=== PATIENT | female | born 1990 | race Caucasian/White ===

== ENCOUNTER 2019-03-13 05:30 | Inpatient (IN) | payer OTHER ==
[2019-03-13] MEDS ORDERED: Methylergonovine 0.2 MG/ML VIAL IM PRN (06:28)
[2019-03-13] MEDS ORDERED: Ibuprofen 800 MG TAB PO PRN (06:28)
[2019-03-13] MEDS ORDERED: Butorphanol Tartrate 1 MG/ML VIAL SLOW IVP PRN (06:28)
[2019-03-13] MEDS ORDERED: Promethazine HCl 25 MG/ML VIAL IM PRN ×2 (06:28→12:51)
[2019-03-13] MEDS ORDERED: Lidocaine 1% (PF) 30 ML VIAL SC PRN (06:28)
[2019-03-13] MEDS ORDERED: NS / Oxytocin 40 units/1000ml 1,000 ML IV PRN (06:28)
[2019-03-13] MEDS ORDERED: HYDROcodone/Acetaminophen 5/325 mg Tablet PO PRN ×3 (06:28→22:44)
[2019-03-13] MEDS ORDERED: Misoprostol 200 MCG TAB PR PRN (06:28)
[2019-03-13] MEDS ORDERED: Acetaminophen 500 MG TAB PO PRN (06:28)
[2019-03-13] MEDS ORDERED: Ondansetron PF 4 MG/2 ML Vial IVP PRN ×3 (06:28→22:44)
[2019-03-13] MEDS ORDERED: NS w/ Oxytocin 10 units 500 ML IV SCH (06:28)
[2019-03-13] MEDS ORDERED: Diphenoxylate HCl/Atropine Tablet PO PRN (06:28)
[2019-03-13] MEDS ORDERED: Carboprost 250 MCG/ML AMP IM PRN (06:28)
[2019-03-13 06:44] VITALS: BMI 34.9
[2019-03-13] MEDS: Lactated Ringer's 1,000 ML IV SCH ×3 (07:03→17:18)
[2019-03-13 07:51] LABS: Hemoglobin 11.4 g/dL (12.0-16.0); Mean Corpuscular HGB CONC 33.8 g/dL (32.0-36.0); Mean Corpuscular Hemoglobin 29.4 pg (27.0-31.0); Mean Corpuscular Volume 86.9 fL (78.0-98.0); Mean Platelet Volume 8.4 fL (7.4-10.4); Platelet Count 185 thou/uL (130-400); RBC Distribution Width 12.9 % (11.5-14.5); Red Blood Cell (RBC) Count 3.88 mill/uL (4.20-5.40); White Blood Cell (WBC) Count 10.8 thou/uL (4.8-10.8)
--- NOTE | 2019-03-13 08:04 | PDOC.LDHP ---
Labor and Delivery H&P Chief complaint: scheduled induction HPI: 28yo at 39w5d by LMP here for elective IOL. No complaints. Good FM. Current gestational age (weeks): 39 Due date: 03/15/19 Dating criteria: last menstrual period Grav: 3 Para: 2 OB History Details: hx of minor dystocia with last delivery of 7lb7oz baby Current complications: none Abnormal US findings: No Current medications: pre- vitamins Previous surgical history: none Allergies/Adverse Reactions: Allergies Allergy/AdvReac Type Severity Reaction Status Date / Time No Known Allergies Allergy Verified 03/13/19 06:30 Social history: none - Physical Exam Vital signs reviewed and normal: yes General: NAD Heart: RRR Lungs: CTAB Abdomen: gravid Extremeties: no edema FHT: category 1 [place] contractions every: 3-4min - OB Labs Blood type: O RH: positive Antibody Screen: negative HIV: negative RPR: negative HEPSAg: negative 1 hour GCT: negative GBS: negative Urine drug screen: negative Rubella: immune - Assessment L&D Assessment: elective induction at term - Plan Plan: admit to L&D, labor augmentation if indicated, informed consent obtained, anesthesia consult for pain management
[2019-03-13 08:29] LABS: HBSAg Index 0.28 S/CO (0-0.99); Hep B Surf Ag Non-Reactive S/CO (NonReactive); Syphilis Antibody Nonreactive (Nonreactive); Syphilis Antibody Index 0.05 S/CO (<1.00 Non-Reactive)
[2019-03-13] MEDS ORDERED: Terbutaline Sulfate 1 MG/ML VIAL ONE (11:11)
[2019-03-13] MEDS ORDERED: Bupivacaine/Epinephrine 0.25% 30 ML VIAL ONE (11:11)
[2019-03-13] MEDS ORDERED: Bupivacaine 0.25% HCL 30 ML VIAL ONE ×2 (11:11→17:14)
[2019-03-13] MEDS ORDERED: Fentanyl 4 mcg/Bup 0.1% Cadd 100 ML ONE ×2 (11:47→18:34)
[2019-03-13] MEDS: Fentanyl 4 mcg/Bupivacaine 0.1% Cassette 100 ML EPIDURAL SCH ×2 (12:48→18:36)
[2019-03-13] MEDS ORDERED: Acetaminophen 325 MG TAB PO PRN (12:51)
[2019-03-13] MEDS ORDERED: Lactated Ringer's 500 ML IV PRN (12:51)
[2019-03-13] MEDS ORDERED: Naloxone HCl 0.4 mg/ml Vial IVP PRN ×2 (12:51)
[2019-03-13] MEDS ORDERED: ePHEDrine/0.9% NaCl/PF SYRINGE 50 mg/10 ml SLOW IVP PRN (12:51)
[2019-03-13] MEDS ORDERED: diphenhydrAMINE 50 MG/ML VIAL IVP PRN (12:51)
[2019-03-13] MEDS ORDERED: Communication Order-Pharmacy FS SCH (13:00)
--- NOTE | 2019-03-13 17:26 | PDOC.LDPN ---
Labor & Delivery Progress Note - Subjective Subjective: painful contractions - Objective Vital signs reviewed and normal: yes General: NAD Uterine fundus: non tender Dilation: 6 Effacement: 90% Station: -1 FHT: category 2, absent or minimal variables (, prolonged decel to 60s for 10min at 1641 that required knee chest, pitocin DC, terbutaline. Since then late decel x 2 and earlies, minimal variability. ) Resuscitative measures: maternal oxygen, maternal IV fluids, maternal position change, other (terbutaline 0.25 sq) Plan: resuscitative measures, other (replace epidural)
[2019-03-13] MEDS ORDERED: Terbutaline Sulfate 1 MG/ML VIAL SC SCH (17:45)
--- NOTE | 2019-03-13 21:06 | PDOC.OPDEL ---
OB Operative/Delivery Note Delivery Dr/Surgeon: Rudolph Assist: n/a Pre-Delivery Diagnosis: elective induction Procedure/Post Delivery Dx: spontaneous vaginal delivery Weeks gestation: 39 Anesthesia: epidural - Findings A Sex: female - 1 min: 8 - 5 min: 9 - Additional Findings/Plan Placenta delivered: spontaneous Repaired Obstetrical Laceration: none Estimated blood loss: 50cc Compilations/Other Findings: NC x 1 reduced at perineum, slight shoulder dystocia resolved with Elyssa and suprapubic. Anterior shoulder was right side. Total time on perineum approx 30sec. Post delivery plan: routine recovery
[2019-03-13 21:07] LABS: Actual Bicarbonate (HCO3v) 21 mEq/L (22-28); Base Excess -4.3 mEq/L (-2.0 to +3.0); pH (Cord, venous) 7.35 (7.32-7.43)
[2019-03-13] MEDS ORDERED: Adacel (T-DAP) 0.5 ML SYRINGE IM ONE (22:44)
[2019-03-13] MEDS ORDERED: Milk Of Magnesia 30 ML UDCUP PO PRN (22:44)
[2019-03-13] MEDS ORDERED: Benzocaine-Menthol 82.5 ML CAN TOP PRN (22:44)
[2019-03-13] MEDS ORDERED: diphenhydrAMINE 25 MG CAP PO PRN (22:44)
[2019-03-13] MEDS ORDERED: NS / Oxytocin 40 units/1000ml 1,000 ML IV SCH (22:44)
[2019-03-13] MEDS ORDERED: Preparation H Ointment 28 GM TUBE PR PRN (22:44)
[2019-03-13] MEDS ORDERED: Lanolin Ointment 7 GM TUBE TOP PRN (22:44)
[2019-03-13] MEDS ORDERED: Bisacodyl 10 MG SUPP PR PRN (22:44)
[2019-03-14] MEDS: Ibuprofen 800 MG TAB PO SCH ×5 (01:34→21:42)
--- NOTE | 2019-03-14 08:07 | PDOC.PP ---
Post Progress Note Post Day #: 1 Subjective: C/O numbness on left LE along anterior quadriceps and ayala. Unable to ambulate due to it. No other concerns. Breast feeding. Minimal lochia and pain. PO intake tolerated: yes Flatus: yes Ambulation: yes Vital Signs (12 hours) Temp Pulse Resp BP Pulse Ox 03/14/19 07:49 97.7 F 68 20 117/69 100 03/14/19 04:28 97.7 F 72 18 111/58 L 03/14/19 01:22 98.2 F 77 18 111/76 03/14/19 00:19 98.2 F 82 18 90/52 L 03/13/19 23:19 97.6 F 102 H 18 122/67 Weight Weight 197 lb - Physical Examination General: NAD Cardiovascular: RRR Respiratory: non-labored breathing Abdominal: appropriately TTP Fundus firm & at: below umbilicus Extremities: negative homans (B) Deviation from normal: Numbness on anterior thigh and ayala; gross motor intact. Neurological: no gross focal deficits Psychiatric: A&Ox3, normal affect Result Diagrams: 03/13/19 07:31 Additional Labs: Post Labs Blood Type O POSITIVE 03/13/19 08:03 Hep Bs Antigen Non-Reactive S/CO (NonReactive) 03/13/19 07:18 (1) Vaginal delivery Code(s): O80 - ENCOUNTER FOR FULL-TERM UNCOMPLICATED DELIVERY Status: Acute - Assessment/Plan PPD1 VSSAF SCDs until ambulating well Anesthesia to evaluate today. Reviewed that sensation should improve throughout the day. Plan for d/c tomorrow.
[2019-03-14] MEDS: Prenatal Vitamin 1 TAB PO SCH (08:22)
[2019-03-14] MEDS: Docusate Calcium (SURFAK) 240 MG CAP PO SCH ×2 (08:22→21:41)
[2019-03-14] MEDS: Ferrous Sulfate 325 MG TAB PO SCH ×2 (08:23→14:53)
[2019-03-15] MEDS: Ibuprofen 800 MG TAB PO SCH (05:52)
--- NOTE | 2019-03-15 08:06 | PDOC.PP ---
Post Progress Note Post Day #: 2 PO intake tolerated: yes Flatus: yes Ambulation: yes Vital Signs (12 hours) Temp Pulse Resp BP Pulse Ox 03/15/19 01:21 98.2 F 73 18 114/71 03/14/19 20:50 97.8 F 80 16 112/64 99 Weight Weight 197 lb - Physical Examination General: NAD Cardiovascular: RRR Respiratory: non-labored breathing Abdominal: no distention, appropriately TTP Fundus firm & at: umb Extremities: negative homans (B) Skin: no rash Neurological: no gross focal deficits Psychiatric: normal affect Result Diagrams: 03/13/19 07:31 Additional Labs: Post Labs Blood Type O POSITIVE 03/13/19 08:03 Hep Bs Antigen Non-Reactive S/CO (NonReactive) 03/13/19 07:18 - Assessment/Plan PPD2 s/p TSVD VSSAF Doing well, neurologic deficits resolved, lochia appropriate Rh pos RImm DC home FU 6w
[2019-03-15 08:24] VITALS: BP 120/80; TEMP 97.9
[2019-03-15] MEDS: Ferrous Sulfate 325 MG TAB PO SCH (09:53)
[2019-03-15] MEDS: Docusate Calcium (SURFAK) 240 MG CAP PO SCH (11:04)
[2019-03-15] MEDS: Prenatal Vitamin 1 TAB PO SCH (11:04)
== END 2019-03-15 12:10 | disposition home or self-care (01) | DRG 807 ==
LOC: L&D 06:02 → 3SW 03-14 00:15
PROVIDERS: ADMIT Student in an Organized Health Care Education/Training Program; ATTEND Student in an Organized Health Care Education/Training Program
PROC: 10E0XZZ Delivery of Products of Conception, External Approach (ICD-10-PCS; principal; 2019-03-13)
PROC: 3E033VJ Introduction of Other Hormone into Peripheral Vein, Percutaneous Approach (ICD-10-PCS; 2019-03-13)
DX: O66.0 Obstructed labor due to shoulder dystocia (principal); Z37.0 Single live birth; Z3A.39 39 weeks gestation of pregnancy
CPT/HCPCS: 36415; 51702; 82805; 85027; 86780; 86850; 86900; 86901; 87340; J2001; J2590; J3105; S0020